=== PATIENT | female | born 1965 | race Caucasian/White ===

== ENCOUNTER 2016-10-07 15:00 | Emergency (ER) | payer MEDICAID ==
[~2016-10-07] VITALS: Ht 157.5 cm; Wt 90.0 kg
[2016-10-07 15:02] VITALS: BP 178/84; PULSE 83; RESP 14; TEMP 98.2; O2SAT 97
[2016-10-07 16:18] LABS: BLOOD, URINE NEG (NEG); COMMENT (UR) CULT NOT INDICATED; CULTURE IF INDICATED CULT NOT INDICATED; GLUCOSE,URINE NEG (NEG); KETONE, URINE NEG (NEG); NITRITE,URINE NEG (NEG); SQUAMOUS EPITHELIAL CELL URINE 1 /hpf (0-5); URINE COLOR LIGHT-YELLOW (YELLW/STRAW)
[2016-10-07] MEDS ORDERED: METR-1 PO (16:35)
--- NOTE | 2016-10-07 16:35 | PD ---
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 She reports a thick white and yellow discharge with a foul odor. She reports one partner for the last 12 years. No fever nausea vomiting. Location genitourinary. Timing constant. PFSH Past Medical History Asthma: Yes Cardiovascular Problems: Yes ([place] 2001) Cerebrovascular Accident: Yes (2001) Medical other: Yes (EPILEPSY ) Respiratory: Yes (asthma, copd) ?: Not Tubal Ligation: Yes Past Surgical History Section: Yes Gynecologic Surgery: Yes (C SECTION X 3) Social History Alcohol Use: No Tobacco Use: Yes (1 PPD) Substance Use: No Allergies-Medications (Allergen,Severity, Reaction): Coded Allergies: No Known Allergies (Unverified , 10/07/16) Review of Systems Except as stated in HPI: all other systems reviewed are Neg Physical Exam Narrative GENERAL: 50 yo F, WNWD, NAD : Minimal yellow clear discharge in vaginal vault. No adnexal mass or tenderness to palpation. SKIN: Warm and dry. HEAD: Normocephalic. EYES: No scleral icterus. No injection or drainage. NECK: Supple, trachea midline. No JVD or lymphadenopathy. CARDIOVASCULAR: Regular rate and rhythm without murmurs, gallops, or rubs. RESPIRATORY: Breath sounds equal bilaterally. No accessory muscle use. GASTROINTESTINAL: Abdomen soft, non-tender, nondistended. MUSCULOSKELETAL: No cyanosis, or edema. BACK: Nontender without obvious deformity. No CVA tenderness. Data Data Last Documented VS Vital Signs Date Time Temp Pulse Resp B/P Pulse Ox O2 Delivery O2 Flow Rate FiO2 10/07/16 15:02 98.2 83 14 178/84 97 VS reviewed Orders Gc And Chlamydia Pcr (10/07/16 15:32) Wet Prep Profile (10/07/16 15:32) Urinalysis - C+S If Indicated (10/07/16 15:32) Labs Laboratory Tests Test 10/07/16 10/07/16 15:40 15:55 Urine Color LIGHT-YELLOW Urine Turbidity CLEAR Urine pH 7.0 Urine Specific [place] 1.014 Urine Protein NEG mg/dL Urine Glucose (UA) NEG mg/dL Urine Ketones NEG mg/dL Urine Occult Blood NEG Urine Nitrite NEG Urine Bilirubin NEG Urine Urobilinogen LESS THAN 2.0 MG/DL Urine Leukocyte Esterase LARGE Urine RBC 8 /hpf Urine WBC 2 /hpf Urine Squamous Epithelial 1 /hpf Cells Microscopic Urinalysis Comment CULT NOT INDICATED Clue Cells (Wet Prep) NONE SEEN Vaginal Trichomonas (Wet Prep) NONE SEEN Vaginal Yeast (Wet Prep) NONE SEEN MDM Medical Decision Making Medical Screen Exam Complete: Yes Emergency Medical Condition: Yes Medical Record Reviewed: Yes Differential Diagnosis IUP, UTI, ectopic , ov torsion, appendicitis, TOA, cervicitis, BV, Trichomoniasis, ov cyst, hernia, mittelschmerz, pain from menstruation Narrative Course Urinalysis: No UTI Wet prep: honeycutt-negative, possibly false negative We'll cover empirically for cervicitis, bv and trichomoniasis Diagnosis Primary Impression: Vaginal discharge Referrals: Primary Care Physician 2 days Additional Instructions: You have a choice when it comes to health care, and we are glad that you chose [facility]. Hopefully, we have met your expectations on today's visit. You are welcome to return to [facility] at any time, as we are committed to meeting the health care needs of our community. Med/Other Pt SpecificInfo: Prescription(s) given Scripts Metronidazole (Flagyl)500 Mg Gtf275 Mg PO BID 7 Days Ref 0 Prov:Cornell Peñaloza MD 10/07/16 Disposition: 01 DISCHARGE HOME Condition: Stable Cornell Peñaloza MD Oct 07, 2016 16:35
[2016-10-07] MEDS ORDERED: AZITHROMYCIN PWD FOR SUSP 1 GM PACKET PO ONE (16:45)
[2016-10-07] MEDS ORDERED: cefTRIAXone 250 MG VIAL IM ONE (16:45)
[2016-10-07] MEDS ORDERED: LIDOCAINE HCL 1% 50 ML VIAL IM ONE (16:45)
[2016-10-07 18:36] LABS: CHLAMYDIA PCR NOT DETECTED (NOT DETECT); NEISSERIA PCR NOT DETECTED (NOT DETECT)
== END 2016-10-07 17:17 | disposition home or self-care (01) ==
LOC: NEPD 15:00
DX: N89.8 Other specified noninflammatory disorders of vagina (principal); J45.909 Unspecified asthma, uncomplicated; I25.2 Old myocardial infarction; G40.909 Epilepsy, unspecified, not intractable, without status epilepticus; J44.9 Chronic obstructive pulmonary disease, unspecified; F17.200 Nicotine dependence, unspecified, uncomplicated; Z86.73 Personal history of transient ischemic attack (TIA), and cerebral infarction without residual deficits
CPT/HCPCS: 81001; 87210; 87491; 87591; 96372; 99284; J0696

== ENCOUNTER 2016-11-22 18:17 | Emergency (ER) | payer MEDICAID ==
[~2016-11-22] VITALS: Ht 157.5 cm; Wt 93.0 kg
[~2016-11-22 18:17] MED LIST: METR-1 PO
[2016-11-22 18:18] VITALS: BP 154/87; PULSE 99; RESP 20; TEMP 98.3; O2SAT 96
--- NOTE | 2016-11-22 18:36 | PD ---
Physical Exam Date Seen by Provider: Nov 22, 2016 Time Seen by Provider: 18:35 Data Data Last Documented VS Vital Signs Date Time Temp Pulse Resp B/P (MAP) Pulse Ox O2 Delivery O2 Flow Rate FiO2 11/22/16 18:18 98.3 99 20 154/87 (109) 96 Room Air MDM Supervised Visit with JUSTIN: No Narrative Course 50 YO F with complaint of SOB. Signed out AMA from [facility] with dx of PNA. PMH: Smoker,COPD. Vitals reviewed. Patient seen in triage, awaiting bed placement. Berenice Corona Nov 22, 2016 18:36
[2016-11-22 19:24] LABS: AUTOMATED NEUTROPHIL # 7.4 TH/MM3 (1.8-7.7); BASOPHIL # 0.1 TH/MM3 (0-0.2); BASOPHIL % 0.6 % (0.0-2.0); EOSINOPHIL # 0.2 TH/MM3 (0-0.4); EOSINOPHIL % 2.2 % (0.0-4.0); HEMATOCRIT 43.3 % (35.0-46.0); LYMPH % 17.5 % (9.0-44.0); LYMPHOCYTE # 1.9 TH/MM3 (1.0-4.8); MEAN CELL VOLUME 92.1 FL (80.0-100.0); MEAN CORPUSCULAR HGB CONC 32.6 % (32.0-36.0); MONO % 10.7 % (0.0-8.0); PLATELET COUNT 280 TH/MM3 (150-450); RED BLOOD COUNT 4.71 MIL/MM3 (4.00-5.30); RED CELL DISTRIBUTION WIDTH 14.5 % (11.6-17.2); WHITE BLOOD COUNT 10.7 TH/MM3 (4.0-11.0)
[2016-11-22 19:33] LABS: HEMO FLAGS AUTO DIFF
--- NOTE | 2016-11-22 19:41 | RADRPT ---
EXAM DATE/TIME: 11/22/2016 19:00 [place] COMPARISON: No previous studies available for comparison. INDICATIONS : Short of breath. MEDICAL HISTORY : Chronic obstructive pulmonary disease. Asthma. SURGICAL HISTORY : None. ENCOUNTER: Initial ACUITY: 1 day PAIN SCORE: 0/10 LOCATION: Bilateral chest FINDINGS: PA and lateral views of the chest demonstrate a normal-sized cardiac silhouette. There is no effusion , consolidation, or pneumothorax. There is mild interstitial prominence bilaterally. The bones and so ft tissues demonstrate no acute abnormality. CONCLUSION: No acute cardiopulmonary abnormalities identified. Umang Alaniz MD on November 22, 2016 at 19:39 Board Certified Radiologist. This report was verified electronically.
[2016-11-22 19:50] LABS: ALT (GPT) 46 U/L (10-53); ANION GAP 8 MEQ/L (5-15); AST (GOT) 13 U/L (15-37); BICARBONATE 22.8 MEQ/L (21.0-32.0); BLOOD UREA NITROGEN 15 MG/DL (7-18); CHLORIDE 111 MEQ/L (98-107); GLOMERULAR FILTRATION RATE 74 ML/MIN (>89); POTASSIUM 3.9 MEQ/L (3.5-5.1); SODIUM (NA) 142 MEQ/L (136-145)
[2016-11-22 19:52] LABS: ALKALINE PHOSPHATASE 88 U/L (45-117); TOTAL BILIRUBIN ADULT 0.2 MG/DL (0.2-1.0)
[2016-11-22 19:59] LABS: PLATELET ESTIMATE SMEAR NORMAL (NORMAL); PLATELET MORPHOLOGY NORMAL (NORMAL); SCAN/DIFF AUTO DIFF CONFIRMED
[2016-11-22 20:36] VITALS: BP 140/89; PULSE 90; RESP 22; TEMP 98.4; O2SAT 100
[2016-11-22] MEDS ORDERED: CELE100C PO (20:45)
[2016-11-22] MEDS ORDERED: SYMB160A INH (20:45)
[2016-11-22] MEDS ORDERED: methylPREDNISolone SOD SUCC 125 MG/2 ML VIAL IVP ONE (20:45)
[2016-11-22] MEDS ORDERED: ALBUAER3 INH ×2 (20:45→22:59)
[2016-11-22] MEDS ORDERED: TOPI200 PO (20:45)
[2016-11-22] MEDS ORDERED: CYCL1TAB29 PO (20:45)
[2016-11-22] MEDS: RESP: ALBUTEROL 2.5 MG/IPRATROPIUM 0.5 MG NEB (SCH) INH (21:15)
--- NOTE | 2016-11-22 21:53 | PD ---
HPI Chief Complaint: Respiratory Symptoms Time Seen by Provider: 20:30 Travel History International Travel<30 days: No Contact w/Intl Traveler<30days: No Traveled to known affect area: No History of Present Illness HPI Patient is a 50-year-old female with history of epilepsy, COPD, presents to emergency room with shortness of breath. Patient reports that that she was diagnosed with pneumonia as well COPD exacerbation last week, reports that she she was admitted for 5 days at [facility] but left AMA as she wanted to go home. Patient reports that she was not discharged on any antibiotics. Patient reports that since then, she has been wheezing, reports that she has had a dry nonproductive cough. Patient reports that she did try using an albuterol treatment at home with no relief of symptoms. Reports that she is to follow-up with a rat poisoner, reports that since he retired a year ago, she has not been able to find a rat poisoner to care for her under her insurance. Patient denies chest pain, reports shortness of breath. Patient with no fevers or chills, no other complaints. PFSH Past Medical History Asthma: Yes Cardiovascular Problems: Yes COPD: Yes Cerebrovascular Accident: Yes (2002) Respiratory: Yes Myocardial Infarction: Yes (2002) Seizures: Yes Influenza Vaccination: No ?: Not Tubal Ligation: Yes Past Surgical History Section: Yes (X3) Gynecologic Surgery: Yes (C SECTION X 3) Other Surgery: Yes Social History Alcohol Use: No Tobacco Use: Yes (1 PPD) Substance Use: No Allergies-Medications (Allergen,Severity, Reaction): Coded Allergies: alprazolam (Verified Allergy, Unknown, 11/22/16) diphenhydramine (Verified Allergy, Unknown, 11/22/16) Uncoded Allergies: PENICILLIN (Allergy, Unknown, 11/22/16) Reported Meds & Prescriptions Reported Meds & Active Scripts Active Prednisone 20 Mg Tab 20 Mg PO BID 5 Days Proair Hfa 8.5 GM Inh (Albuterol Sulfate) 90 Mcg/Act Aer 2 Puff INH Q4-6H PRN 108 mcg/actuation Azithromycin 500 Mg Tab 500 Mg PO DAILY Reported Celebrex (Celecoxib) 100 Mg Cap 100 Mg PO TID Proair Hfa 8.5 GM Inh (Albuterol Sulfate) 90 Mcg/Act Aer 1 Puff INH BID PRN 108 mcg/actuation Symbicort Inh (Budesonide/Formoterol Fumarate) 160-4.5 Mcg/Act Aero 1 Puff INH DAILY Flexeril (Cyclobenzaprine HCl) 10 Mg Tab 10 Mg PO TID Topamax (Topiramate) 200 Mg Tab 200 Mg PO TID Review of Systems General / Constitutional: No: Fever Eyes: No: Visual changes HENT: No: Headaches Cardiovascular: No: Chest Pain or Discomfort Respiratory: Positive: Cough, Shortness of Breath, Wheezing Gastrointestinal: No: Abdominal Pain Genitourinary: No: Dysuria Musculoskeletal: No: Pain Skin: No Rash Neurologic: No: Weakness Psychiatric: No: Depression Endocrine: No: Polydipsia Hematologic/Lymphatic: No: Easy Bruising Physical Exam Narrative GENERAL: Moderate distress SKIN: Focused skin assessment warm/dry. HEAD: Atraumatic. Normocephalic. EYES: Pupils equal and round. No scleral icterus. No injection or drainage. ENT: No nasal bleeding or discharge. Mucous membranes pink and moist. NECK: Trachea midline. No JVD. CARDIOVASCULAR: Regular rate and rhythm. No murmur appreciated. RESPIRATORY: No accessory muscle use. Patient with scattered wheezing to bilateral upper and lower lobes of the lungs. GASTROINTESTINAL: Abdomen soft, non-tender, nondistended. Hepatic and splenic margins not palpable. MUSCULOSKELETAL: No obvious deformities. No clubbing. No cyanosis. No edema. NEUROLOGICAL: Awake and alert. No obvious cranial nerve deficits. Motor grossly within normal limits. Normal speech. PSYCHIATRIC: Appropriate mood and affect; insight and judgment normal. Data Data Last Documented VS Vital Signs Date Time Temp Pulse Resp B/P (MAP) Pulse Ox O2 Delivery O2 Flow Rate FiO2 11/22/16 20:36 98.4 90 22 140/89 (106) 100 Room Air Orders Orders Complete Blood Count With Diff (11/22/16 18:38) Comprehensive Metabolic Panel (11/22/16 18:38) Electrocardiogram (11/22/16 18:38) B-Type Natriuretic Peptide (11/22/16 18:38) Chest, Pa & Lat (11/22/16 18:38) Methylprednisolone So Succ Inj (Solumedr (11/22/16 20:45) Albuterol-Ipratropium Neb (Duoneb Neb) (11/22/16 20:45) Magnesium Sulfate 1 Gm Premix (Magnesium (11/22/16 22:00) Albuterol Neb (Albuterol Neb) (11/22/16 22:30) Azithromycin (Zithromax) (11/22/16 23:00) Labs Laboratory Tests Test 11/22/16 19:10 White Blood Count 10.7 TH/MM3 Red Blood Count 4.71 MIL/MM3 Hemoglobin 14.1 GM/DL Hematocrit 43.3 % Mean Corpuscular Volume 92.1 FL Mean Corpuscular Hemoglobin 30.0 PG Mean Corpuscular Hemoglobin Concent 32.6 % Red Cell Distribution Width 14.5 % Platelet Count 280 TH/MM3 Mean Platelet Volume 8.1 FL Neutrophils (%) (Auto) 69.0 % Lymphocytes (%) (Auto) 17.5 % Monocytes (%) (Auto) 10.7 % Eosinophils (%) (Auto) 2.2 % Basophils (%) (Auto) 0.6 % Neutrophils # (Auto) 7.4 TH/MM3 Lymphocytes # (Auto) 1.9 TH/MM3 Monocytes # (Auto) 1.1 TH/MM3 Eosinophils # (Auto) 0.2 TH/MM3 Basophils # (Auto) 0.1 TH/MM3 CBC Comment AUTO DIFF Differential Comment AUTO DIFF CONFIRMED Platelet Estimate NORMAL Platelet Morphology Comment NORMAL Red Cell Morphology Comment NORMAL Blood Urea Nitrogen 15 MG/DL Creatinine 0.82 MG/DL Random Glucose 99 MG/DL Total Protein 6.4 GM/DL Albumin 3.1 GM/DL Calcium Level 8.2 MG/DL Alkaline Phosphatase 88 U/L Aspartate Amino Transf (AST/SGOT) 13 U/L Alanine Aminotransferase (ALT/SGPT) 46 U/L Total Bilirubin 0.2 MG/DL Sodium Level 142 MEQ/L Potassium Level 3.9 MEQ/L Chloride Level 111 MEQ/L Carbon Dioxide Level 22.8 MEQ/L Anion Gap 8 MEQ/L Estimat Glomerular Filtration Rate 74 ML/MIN B-Type Natriuretic Peptide 77 PG/ML MDM Medical Decision Making Medical Screen Exam Complete: Yes Emergency Medical Condition: Yes Interpretation(s) Vital Signs Date Time Temp Pulse Resp B/P (MAP) Pulse Ox O2 Delivery O2 Flow Rate FiO2 11/22/16 20:36 98.4 90 22 140/89 (106) 100 Room Air 11/22/16 18:18 98.3 99 20 154/87 (109) 96 Room Air CBC & BMP Diagram 11/22/16 19:10 Total Protein 6.4, Albumin 3.1 L, Calcium Level 8.2 L, Alkaline Phosphatase 88, Aspartate Amino Transf (AST/SGOT) 13 L, Alanine Aminotransferase (ALT/SGPT) 46, Total Bilirubin 0.2 X-ray of the chest shows no acute cardiopulmonary abnormalities Differential Diagnosis Differential includes pneumonia, COPD exacerbation, viral syndrome Narrative Course Patient is a 50-year-old female with history of COPD, presents to emergency room with complaints of nonproductive cough, wheezing and shortness of breath. She recently left against family practice medical doctor at an outside hospital last week after being admitted for 5 days for treatment of pneumonia as well as copd, after she left AMA - she was not discharged on any antibiotics. Vital signs are stable this time. Labs were reviewed, CBC: wnl, bmp: sodium 142 , chloride 111, potassium 3.9, BUN 15, creatinine 0.82, glucose 99 X-ray of the chest with no acute infiltrates. IV steroids as well as neb treatment ordered, plan to treat for COPD exacerbation. CBC & BMP Diagram 11/22/16 19:10 Total Protein 6.4, Albumin 3.1 L, Calcium Level 8.2 L, Alkaline Phosphatase 88, Aspartate Amino Transf (AST/SGOT) 13 L, Alanine Aminotransferase (ALT/SGPT) 46, Total Bilirubin 0.2 xray of chest: no acute cardiopulmonary abnormalities identified Patient feeling much better at this time. I reviewed all labs and studies with her, will discharge her with steroids, proair inhaler as well as azithromycin. She will follow up with her primary care doctor and will return to ER as needed Diagnosis Primary Impression: COPD with exacerbation Patient Instructions: General Instructions Additional Instructions: Please follow up with your primary care doctor Please take all medications as prescribed Return to ER as needed Return to ER if symptoms worsen or persist Med/Other Pt SpecificInfo: Prescription(s) given Scripts Prednisone (Prednisone) 20 Mg Tab 20 MG PO BID for 5 Days, TAB 0 Refills Prov: Yue Montilla DO 11/22/16 Albuterol 8.5 GM Inh (Proair Hfa 8.5 GM Inh) 90 Mcg/Act Aer 2 PUFF INH Q4-6H Y for SHORTNESS OF BREATH, #1 INHALER 0 Refills 108 mcg/actuation Prov: Yue Montilla DO 11/22/16 Azithromycin (Azithromycin) 500 Mg Tab 500 MG PO DAILY for Infection, #5 TAB 0 Refills Prov: Yue Montilla DO 11/22/16 Disposition: 01 DISCHARGE HOME Condition: Stable Yue Montilla DO Nov 22, 2016 21:53
[2016-11-22] MEDS ORDERED: MAGNESIUM SULFATE 1 GM PREMIX 100 ML IV ONE (22:00)
[2016-11-22] MEDS: RESP: ALBUTEROL 2.5 MG/3 ML NEB (SCH) INH (22:37)
[2016-11-22] MEDS ORDERED: PRED20 PO (22:59)
[2016-11-22] MEDS ORDERED: AZIT500T2 PO (22:59)
[2016-11-22] MEDS ORDERED: AZITHROMYCIN 250 MG TAB PO ONE (23:00)
[2016-11-22 23:16] VITALS: BP 130/69; PULSE 90; RESP 18; O2SAT 96
--- NOTE | 2016-11-23 19:49 | EKG ---
Date Performed: 11/22/2016 Time Performed: 19:15:35 PTAGE: 50 years EKG: Sinus rhythm POSSIBLE RIGHT VENTRICULAR CONDUCTION DELAY BORDERLINE ECG NO PREVIOUS TRACING DOCTOR: Rene Peters Interpretating Date/Time 11/23/2016 19:48:35
== END 2016-11-22 23:29 | disposition home or self-care (01) ==
LOC: NEPC 18:17
DX: J44.1 Chronic obstructive pulmonary disease with (acute) exacerbation (principal); G40.909 Epilepsy, unspecified, not intractable, without status epilepticus
CPT/HCPCS: 71020; 80053; 83880; 85025; 93005; 94640; 94664; 96365; 96375; 99285; J2930; J3475; J7613